=== PATIENT | female | born 1945 | race Caucasian/White ===

== ENCOUNTER 2017-05-18 12:05 | Inpatient (IN) | payer MEDICARE ==
[~2017-05-18] VITALS: Ht 160 cm; Wt 125.7 kg
[2017-05-18] MEDS ORDERED: LISINOPRIL20 M1 PO (12:16)
[2017-05-18] MEDS ORDERED: OMEPRAZOLE20 M1 PO (12:16)
[2017-05-18] MEDS ORDERED: BUFFERIN PO (12:17)
[2017-05-18] MEDS ORDERED: ZYRTEC10 MG PO (12:17)
[2017-05-18 13:12] LABS: HEMATOCRIT 34.9 % (37.0-47.0); HEMOGLOBIN 11.5 g/dl (12.0-16.0); IMMATURE GRANULOCYTES 1.2 % (0.0-1.0); MEAN CELL VOLUME 88.8 fL CALC (80.0-100.0); MEAN CORPUSCULAR HGB 29.3 pG CALC (26.0-32.0); NEUT# 7.46 thou/uL (2.00-7.15); RED BLOOD COUNT 3.93 mill/uL (4.20-5.60); RED CELL DISTRI WIDTH 17.2 % (11.5-15.5)
[2017-05-18 13:39] LABS: ALBUMIN 3.9 g/dL (3.2-5.0); ALKALINE PHOSPHATASE 43 u/l (38-126); ANION GAP 15 (6-22 (CALC)); BILIRUBIN, TOTAL 0.6 mg/dL (0.0-1.4); BUN 19 mg/dL (8-23); BUN/CREATININE RATIO 27 (12-20 (CALC)); CALCIUM 9.3 mg/dL (8.4-10.2); CARBON DIOXIDE 25 mmol/l (22-30); CHLORIDE 101 mmol/l (95-108); CREATININE 0.7 mg/dL (0.5-1.0); GFR > 60 ML/MIN (>=60 (CALC)); GFR FOR AFR.AMER. > 60 ML/MIN (>=60 (CALC)); GLUCOSE 135 mg/dL (82-115); POTASSIUM 3.8 mmol/l (3.5-5.1); SGOT/AST 62 u/l (9-36); SGPT/ALT 44 u/l (11-66); SODIUM 137 mmol/l (137-146); TOTAL PROTEIN 6.5 g/dL (6.3-8.2)
[2017-05-18 14:42] VITALS: BP 153/72
[2017-05-18] MEDS ORDERED: LORAZEPAM0.5 MG PO (14:57)
[2017-05-18 19:40] VITALS: BP 136/66
[2017-05-19 04:50] VITALS: BP 140/71
[2017-05-19 06:15] LABS: HEMATOCRIT 33.8 % (37.0-47.0); HEMOGLOBIN 10.8 g/dl (12.0-16.0); IMMATURE GRANULOCYTES 0.4 % (0.0-1.0); MEAN CELL VOLUME 90.9 fL CALC (80.0-100.0); NEUT# 4.45 thou/uL (2.00-7.15); RED BLOOD COUNT 3.72 mill/uL (4.20-5.60); RED CELL DISTRI WIDTH 17.5 % (11.5-15.5)
[2017-05-19 06:32] LABS: ANION GAP 11 (6-22 (CALC)); BUN 15 mg/dL (8-23); BUN/CREATININE RATIO 24 (12-20 (CALC)); CALCIUM 8.7 mg/dL (8.4-10.2); CARBON DIOXIDE 26 mmol/l (22-30); CHLORIDE 103 mmol/l (95-108); CREATININE 0.6 mg/dL (0.5-1.0); GFR > 60 ML/MIN (>=60 (CALC)); GFR FOR AFR.AMER. > 60 ML/MIN (>=60 (CALC)); GLUCOSE 112 mg/dL (82-115); POTASSIUM 3.9 mmol/l (3.5-5.1); SODIUM 136 mmol/l (137-146)
[2017-05-19 09:00] VITALS: BP 135/73
[2017-05-19] MEDS ORDERED: MAXZIDE-2537.5 MG/TA PO (15:24)
[2017-05-19 16:40] VITALS: BP 130/79
[2017-05-19 20:10] VITALS: BP 134/63
[2017-05-19 23:20] VITALS: BP 149/80
[2017-05-19 23:45] VITALS: BP 101/66
[2017-05-20 04:34] VITALS: BP 141/72
[2017-05-20 06:24] LABS: HEMATOCRIT 34.1 % (37.0-47.0); IMMATURE GRANULOCYTES 0.5 % (0.0-1.0); MEAN CELL VOLUME 91.7 fL CALC (80.0-100.0); MEAN CORPUSCULAR HGB 29.6 pG CALC (26.0-32.0); MEAN CORPUSCULAR HGB CONC 32.3 g/L CALC (32.0-36.0); NEUT# 3.3 thou/uL (2.00-7.15); RED BLOOD COUNT 3.72 mill/uL (4.20-5.60); RED CELL DISTRI WIDTH 17.1 % (11.5-15.5)
[2017-05-20 06:42] LABS: ANION GAP 12 (6-22 (CALC)); BUN 16 mg/dL (8-23); BUN/CREATININE RATIO 25 (12-20 (CALC)); CALCIUM 8.9 mg/dL (8.4-10.2); CARBON DIOXIDE 28 mmol/l (22-30); CHLORIDE 100 mmol/l (95-108); CREATININE 0.6 mg/dL (0.5-1.0); GFR > 60 ML/MIN (>=60 (CALC)); GFR FOR AFR.AMER. > 60 ML/MIN (>=60 (CALC)); GLUCOSE 109 mg/dL (82-115); SODIUM 136 mmol/l (137-146)
[2017-05-20 07:30] VITALS: BP 150/83
[2017-05-20 15:16] VITALS: BP 126/59
[2017-05-20 19:55] VITALS: BP 169/67
[2017-05-21 00:50] VITALS: BP 137/40
[2017-05-21 05:33] LABS: HEMATOCRIT 37.6 % (37.0-47.0); IMMATURE GRANULOCYTES 0.8 % (0.0-1.0); MEAN CELL VOLUME 91.5 fL CALC (80.0-100.0); MEAN CORPUSCULAR HGB 29.2 pG CALC (26.0-32.0); MEAN CORPUSCULAR HGB CONC 31.9 g/L CALC (32.0-36.0); NEUT# 4.55 thou/uL (2.00-7.15); RED BLOOD COUNT 4.11 mill/uL (4.20-5.60); RED CELL DISTRI WIDTH 16.7 % (11.5-15.5)
[2017-05-21 05:46] VITALS: BP 136/51
[2017-05-21 05:52] LABS: ANION GAP 13 (6-22 (CALC)); BUN 13 mg/dL (8-23); BUN/CREATININE RATIO 21 (12-20 (CALC)); CALCIUM 9.2 mg/dL (8.4-10.2); CARBON DIOXIDE 28 mmol/l (22-30); CHLORIDE 100 mmol/l (95-108); CREATININE 0.6 mg/dL (0.5-1.0); GFR > 60 ML/MIN (>=60 (CALC)); GFR FOR AFR.AMER. > 60 ML/MIN (>=60 (CALC)); GLUCOSE 118 mg/dL (82-115); POTASSIUM 4.3 mmol/l (3.5-5.1); SODIUM 137 mmol/l (137-146)
[2017-05-21 07:30] VITALS: BP 162/84
[2017-05-21] MEDS ORDERED: CIPROFLOXACN500 MG PO (11:14)
[2017-05-21] MEDS ORDERED: LASIX20 MG PO (11:14)
[2017-05-21] MEDS ORDERED: METRONIDAZOL500 MG PO (11:14)
[2017-05-21] MEDS ORDERED: LORAZEPAM0.5 MG PO (11:14)
[2017-05-21] MEDS ORDERED: DOXYCYCL HYC100 MG PO (11:14)
[2017-05-21] MEDS ORDERED: TRAMADOL HCL50 MG PO (11:14)
[2017-05-21 12:40] VITALS: BP 159/84
[2017-05-21 16:30] VITALS: BP 142/42
[2017-05-21 19:01] VITALS: BP 145/51
[2017-05-22 05:05] VITALS: BP 148/66
[2017-05-22 08:28] VITALS: BP 129/66
[2017-05-22 16:20] VITALS: BP 120/64
[2017-05-22 19:07] VITALS: BP 135/61
[2017-05-23 04:35] VITALS: BP 173/70
[2017-05-23 05:53] LABS: ANION GAP 11 (6-22 (CALC)); BUN 13 mg/dL (8-23); BUN/CREATININE RATIO 22 (12-20 (CALC)); CALCIUM 9.2 mg/dL (8.4-10.2); CARBON DIOXIDE 29 mmol/l (22-30); CHLORIDE 101 mmol/l (95-108); CREATININE 0.6 mg/dL (0.5-1.0); GFR > 60 ML/MIN (>=60 (CALC)); GFR FOR AFR.AMER. > 60 ML/MIN (>=60 (CALC)); GLUCOSE 117 mg/dL (82-115); MAGNESIUM 1.9 mg/dL (1.6-2.3); POTASSIUM 4.4 mmol/l (3.5-5.1); SODIUM 137 mmol/l (137-146)
[2017-05-23 09:02] VITALS: BP 145/52
[2017-05-23 15:54] VITALS: BP 107/60
[2017-05-23 20:02] VITALS: BP 122/63
[2017-05-24 04:49] LABS: HEMATOCRIT 36.8 % (37.0-47.0); HEMOGLOBIN 11.9 g/dl (12.0-16.0); MEAN CELL VOLUME 90.6 fL CALC (80.0-100.0); MEAN CORPUSCULAR HGB 29.3 pG CALC (26.0-32.0); MEAN CORPUSCULAR HGB CONC 32.3 g/L CALC (32.0-36.0); RED BLOOD COUNT 4.06 mill/uL (4.20-5.60); RED CELL DISTRI WIDTH 16.8 % (11.5-15.5)
[2017-05-24 05:05] LABS: ANION GAP 13 (6-22 (CALC)); BUN 16 mg/dL (8-23); BUN/CREATININE RATIO 23 (12-20 (CALC)); CALCIUM 9.5 mg/dL (8.4-10.2); CARBON DIOXIDE 28 mmol/l (22-30); CHLORIDE 99 mmol/l (95-108); CREATININE 0.7 mg/dL (0.5-1.0); GFR > 60 ML/MIN (>=60 (CALC)); GFR FOR AFR.AMER. > 60 ML/MIN (>=60 (CALC)); GLUCOSE 117 mg/dL (82-115); MAGNESIUM 1.8 mg/dL (1.6-2.3); POTASSIUM 4.3 mmol/l (3.5-5.1); SODIUM 136 mmol/l (137-146)
[2017-05-24 05:16] VITALS: BP 142/65
[2017-05-24 07:50] VITALS: BP 155/80
[2017-05-24] MEDS ORDERED: FLORASTOR250 M1 PO (10:48)
[2017-05-24] MEDS ORDERED: LASIX20 MG PO (10:48)
[2017-05-24 15:37] VITALS: BP 141/81
[2017-05-24 20:45] VITALS: BP 136/63
[2017-05-25 04:30] VITALS: BP 140/72
[2017-05-25 07:55] VITALS: BP 135/77
[2017-05-25] MEDS ORDERED: ALDACTONE25 MG PO (08:46)
[2017-05-25] MEDS ORDERED: BUMETANIDE1 MG PO (08:46)
[2017-05-25] MEDS ORDERED: EFFEXOR37.5 MG PO (08:46)
[2017-05-25 15:58] VITALS: BP 127/65
[2017-05-25 19:15] VITALS: BP 126/68
[2017-05-26 04:00] VITALS: BP 133/67
[2017-05-26 05:45] LABS: ANION GAP 12 (6-22 (CALC)); BUN 18 mg/dL (8-23); BUN/CREATININE RATIO 26 (12-20 (CALC)); CALCIUM 9.4 mg/dL (8.4-10.2); CARBON DIOXIDE 29 mmol/l (22-30); CHLORIDE 99 mmol/l (95-108); CREATININE 0.7 mg/dL (0.5-1.0); GFR > 60 ML/MIN (>=60 (CALC)); GFR FOR AFR.AMER. > 60 ML/MIN (>=60 (CALC)); GLUCOSE 112 mg/dL (82-115); POTASSIUM 4.7 mmol/l (3.5-5.1); SODIUM 135 mmol/l (137-146)
[2017-05-26 06:00] LABS: HEMATOCRIT 37.7 % (37.0-47.0); HEMOGLOBIN 12.1 g/dl (12.0-16.0); MEAN CELL VOLUME 90.2 fL CALC (80.0-100.0); MEAN CORPUSCULAR HGB 28.9 pG CALC (26.0-32.0); MEAN CORPUSCULAR HGB CONC 32.1 g/L CALC (32.0-36.0); NEUT# 4.25 thou/uL (2.00-7.15); RED BLOOD COUNT 4.18 mill/uL (4.20-5.60); RED CELL DISTRI WIDTH 16.9 % (11.5-15.5)
[2017-05-26 06:45] VITALS: BP 143/68
[2017-05-26 15:37] VITALS: BP 121/69
== END 2017-05-26 18:40 | DRG 603 ==
LOC: ENPENDDIS → ED 12:05 → ED-I 13:50 → ED 14:06 → MS2 14:07
PROVIDERS: Emergency Medicine; Internal Medicine; ADMIT Internal Medicine; ATTEND Internal Medicine
DX: L03.115 Cellulitis of right lower limb (principal); Z68.43 Body mass index [BMI] 50.0-59.9, adult; I10 Essential (primary) hypertension; F41.1 Generalized anxiety disorder; F32.9 Major depressive disorder, single episode, unspecified; K21.9 Gastro-esophageal reflux disease without esophagitis; I83.93 Asymptomatic varicose veins of bilateral lower extremities; N39.41 Urge incontinence; R73.03 Prediabetes; E66.9 Obesity, unspecified; K59.00 Constipation, unspecified; B37.3 Candidiasis of vulva and vagina; Z88.0 Allergy status to penicillin; Z86.14 Personal history of Methicillin resistant Staphylococcus aureus infection
CPT/HCPCS: G0378; J1650; J3370

== ENCOUNTER 2018-05-06 08:59 | Day surgery (SDC) | payer MEDICARE ==
[~2018-05-06] VITALS: Ht 162.6 cm; Wt 127.0 kg
[~2018-05-06 08:59] MED LIST: ALDACTONE25 MG PO; AMITIZA8 MCG PO; APAP/TRAMADL1 TAB PO; ATIVAN0.5 MG PO; BILBERRY1000 MG PO; BL POTASSIUM99 MG PO; BUFFERIN PO; BUMETANIDE1 MG PO; CALCIUM600 M1 PO; CINNAMON500 MG PO; CIPROFLOXACN500 MG PO; DOXYCYCL HYC100 MG PO; E400400 UNIT PO; EFFEXOR37.5 MG PO; ENTERIC COATED325 MG PO; EQ OMEPRAZOLE M20 MG PO; FISH OIL1200 M1 PO; FLORASTOR250 M1 PO; FOLIC ACID800 MC1 PO; LASIX20 MG PO; LISINOPRIL20 M1 PO; LISINOPRIL20 MG PO; LORAZEPAM0.5 MG PO; MAG-OX 400400 MG PO; MAXZIDE-2537.5 MG/TA PO; METRONIDAZOL500 MG PO; MULTI VITAMIN1 TAB PO; NIACIN250 M4 PO; OMEPRAZOLE20 M1 PO; TRAMADOL HCL50 MG PO; TURMERIC450 MG PO; VITAMIN B-121000 MCG PO; VITAMIN C1000 MG PO; VITAMIN D31000 UNI1 PO; ZYRTEC10 M5 PO; ZYRTEC10 MG PO; [UNRECOGNIZED DRUG - OTHER] PO; [UNRECOGNIZED DRUG - OTHER] PO
[2018-05-06 12:14] VITALS: BP 117/73
== END 2018-05-06 12:45 | disposition home or self-care (01) ==
LOC: ENDO 08:59 → ORM 12:50 → ENDO 12:50
PROVIDERS: ATTEND Internal Medicine Gastroenterology
PROC: 0DB48ZX Excision of Esophagogastric Junction, Via Natural or Artificial Opening Endoscopic, Diagnostic (ICD-10-PCS; principal; 2018-05-06)
PROC: 0DB68ZX Excision of Stomach, Via Natural or Artificial Opening Endoscopic, Diagnostic (ICD-10-PCS; 2018-05-06)
DX: K22.70 Barrett's esophagus without dysplasia (principal); R11.0 Nausea; K21.0 Gastro-esophageal reflux disease with esophagitis; K29.70 Gastritis, unspecified, without bleeding; K31.9 Disease of stomach and duodenum, unspecified; K31.7 Polyp of stomach and duodenum; K59.00 Constipation, unspecified; I11.0 Hypertensive heart disease with heart failure; I50.9 Heart failure, unspecified; E03.9 Hypothyroidism, unspecified; G47.30 Sleep apnea, unspecified; Z79.899 Other long term (current) drug therapy

== ENCOUNTER 2018-06-20 13:34 | Emergency (ER) | payer MEDICARE ==
[~2018-06-20] VITALS: Ht 162.6 cm; Wt 130.0 kg
[2018-06-20 14:30] LABS: HEMATOCRIT 35.9 % (37.0-47.0); HEMOGLOBIN 11.8 g/dl (12.0-16.0); IMMATURE GRANULOCYTES 0.2 % (0.0-5.0); MEAN CELL VOLUME 92.3 fL CALC (80.0-100.0); MEAN CORPUSCULAR HGB 30.3 pG CALC (26.0-32.0); MEAN CORPUSCULAR HGB CONC 32.9 g/L CALC (32.0-36.0); NEUT# 3.72 thou/uL (2.00-7.15); RED BLOOD COUNT 3.89 mill/uL (4.20-5.60); RED CELL DISTRI WIDTH 17.2 % (11.5-15.5)
[2018-06-20 14:48] VITALS: BP 161/67
== END 2018-06-20 14:50 | disposition home or self-care (01) ==
LOC: ED 13:34
DX: R04.0 Epistaxis (principal); I10 Essential (primary) hypertension; M19.90 Unspecified osteoarthritis, unspecified site

== ENCOUNTER 2019-09-19 11:09 | Emergency (ER) | payer MEDICARE ==
[~2019-09-19] VITALS: Ht 162.6 cm; Wt 125.0 kg
[2019-09-19 13:38] LABS: URINE BILIRUBIN - DIPSTICK NEGATIVE (NEGATIVE); URINE BLOOD DIPSTICK NEGATIVE (NEGATIVE); URINE COLOR YELLOW; URINE GLUCOSE - DIPSTICK NEGATIVE (NEGATIVE); URINE KETONE NEGATIVE (NEGATIVE); URINE LEUK ESTERASE TRACE (NEGATIVE); URINE NITRITE - DIPSTICK NEGATIVE (Negative); URINE PROTEIN - DIPSTICK NEGATIVE (NEG-TRACE); URINE SPECIFIC GRAVITY <=1.005; URINE UROBILINOGEN - DIPSTICK 0.2 E.U./dL (0.2)
[2019-09-19] MEDS ORDERED: MACROBID100 MG PO (14:30)
[2019-09-19 14:41] VITALS: BP 156/72
== END 2019-09-19 14:56 | disposition home or self-care (01) ==
LOC: ED 11:09
DX: K59.00 Constipation, unspecified (principal); K56.41 Fecal impaction; N39.0 Urinary tract infection, site not specified; I10 Essential (primary) hypertension

== ENCOUNTER 2022-07-01 15:23 | Emergency (ER) | payer OTHER, MEDICARE ==
[~2022-07-01] VITALS: Ht 160 cm; Wt 122.7 kg
[~2022-07-01 15:23] MED LIST changes: +ACETAMINOP160 MG/5 M PO; +ARNUITY EL50 MCG/ACT; +ASPIRIN 81 LOW81 MG PO; +MACROBID100 MG PO; +MELATONIN1 TA3 PO; +TYLENOL PO; +XARELTO10 MG PO
[2022-07-01 15:44] VITALS: BP 156/66
[2022-07-01 16:16] VITALS: BP 153/63
[2022-07-01 16:22] VITALS: BP 153/63
== END 2022-07-01 16:34 | disposition home or self-care (01) | DRG 552 ==
LOC: ED 15:23
DX: S16.1XXA Strain of muscle, fascia and tendon at neck level, initial encounter (principal); V43.52XA Car driver injured in collision with other type car in traffic accident, initial encounter